=== PATIENT | male | born 1950 | race Caucasian/White ===

== ENCOUNTER 2017-04-21 09:02 | Emergency (ER) | payer MEDICARE ==
[2017-04-21] MEDS ORDERED: ASPIRIN 81 MG CHEWABLE TABLET PO ONE (09:06)
[2017-04-21] MEDS ORDERED: NITROGLYCERIN/D5W 50 MG/250 ML ML IV SCH (09:15)
--- NOTE | 2017-04-21 09:16 | Emergency Department Record ---
History of Present Illness - General Chief Complaint: Chest Pain Stated Complaint: LEFT SHOULDER PAIN/SHORTNESS BREATH Time Seen by Provider: 04/21/17 09:06 Source: Patient Mode of Arrival: Ambulatory Limitations: No limitations - History of Present Illness Initial Comments: 66 yo male presents to ED with a CC of left shoulder pain intermittently for the past 3-4 days. Patient reports that his symptoms became more intense this morning. Patient reports a history of similar symptoms related to his heart. Patient also reports taking Nitro tablets x 3 this morning that improved his pain symptoms. Patient reports history of CAD with stents x 10, [employer] [facility] [employer] is Dr. Hauser. Patient denies injury to the shoulder or fevers, chills, or recent illness. Patient is pain-free currently. MD Complaint: Chest pain Onset/Timin -: Days(s) Pain Location: Other Severity: Moderate Quality: Aching Consistency: Intermittent Improves With: Nitroglycerin Worsens With: Nothing - Related Data Home Medications Medication Instructions Recorded Confirmed Last Taken Atorvastatin Calcium [Atorvastatin 20 g PO DAILY 04/21/17 04/21/17 04/20/17 Calcium] Clopidogrel Bisulfate [Plavix] 75 mg PO DAILY 04/21/17 04/21/17 04/20/17 Hydrochlorothiazide 50 mg PO DAILY 04/21/17 04/21/17 04/20/17 Lisinopril [Lisinopril] 2.5 mg PO DAILY 04/21/17 04/21/17 04/20/17 Metformin HCl 500 mg PO BID 04/21/17 04/21/17 04/20/17 Zolpidem Tartrate [Zolpidem 10 mg PO DAILY 04/21/17 04/21/17 04/20/17 Tartrate] Allergies Allergy/AdvReac Type Severity Reaction Status Date / Time ceftriaxone [From Rocephin] Allergy PT UNSURE Verified 04/21/17 09:34 OF REACTION fentanyl [From Duragesic] Allergy PT UNSURE Verified 04/21/17 09:34 OF REACTION levofloxacin [From Levaquin] Allergy PT UNSURE Verified 04/21/17 09:34 OF REACTION Review of Systems Constitutional: Denies: Chills, Fever, Malaise, Night sweats Eyes: Denies: Eye discharge, Eye pain ENT: Denies: Congestion, Ear pain, Epistaxis Respiratory: Denies: Cough, Dyspnea Cardiovascular: Reports: Other (Left shoulder pain). Denies: Dyspnea on exertion, Palpitations Endocrine: Denies: Fatigue, Heat or cold intolerance Gastrointestinal: Denies: Abdominal pain, Nausea, Vomiting Genitourinary: Denies: Incontinence, Retention Musculoskeletal: Denies: Arthralgia, Back pain, Gout, Joint swelling Skin: Denies: Bruising, Change in color Neurological: Denies: Abnormal gait, Confusion, Headache Psychiatric: Denies: Anxiety Hematological/Lymphatic: Denies: Anemia, Blood Clots Physical Exam - General General Appearance: Alert, Oriented x3, Cooperative, Moderate distress, Other ( Patient appears moderately uncomfortable on examination, ashen color) Limitations: No limitations - Head Head exam: Atraumatic, Normocephalic, Normal inspection Head exam detail: negative: Abrasion, Contusion, Chaudhari's sign, General tenderness, Hematoma, Laceration - Eye Eye exam: Normal appearance. negative: Conjunctival injection, Periorbital swelling, Periorbital tenderness, Scleral icterus - ENT Ear exam: negative: Auricular hematoma, Auricular trauma Nasal Exam: negative: Active bleeding, Discharge, Dried blood Mouth exam: negative: Drooling, Laceration, Tongue elevation - Neck Neck exam: Normal inspection. negative: Meningismus, Tenderness - Respiratory Respiratory exam: Normal lung sounds bilaterally. negative: Respiratory distress, Rhonchi, Stridor, Wheezes - Cardiovascular Cardiovascular Exam: Regular rate, Normal rhythm, Normal heart sounds - GI/Abdominal GI/Abdominal exam: Soft. negative: Rebound, Rigid, Tenderness - Rectal Rectal exam: Deferred - exam: Deferred - Extremities Extremities exam: Normal inspection. negative: Calf tenderness, Tenderness - Back Back exam: Denies: CVA tenderness (R), CVA tenderness (L) - Neurological Neurological exam: Alert, Normal gait, Oriented X3 - Psychiatric Psychiatric exam: Normal affect, Normal mood - Skin Skin exam: Other (ashen appearance). negative: Abrasion Type of lesion: negative: abrasion Course - Reevaluation(s) Reevaluation #1: 04/21/17 09:16 EKG: NSR 87 LAD, Normal intervals No acute ST-T wave changes Unchanged from 05/07/2010 Reevaluation #2: 04/21/17 09:20 While discussing the patient's EKG results, reports that pain is beginning to return-Nitro drip has been ordered. Will plan of obtaining the patient's blood test results with a plan for transfer to [facility] for cardiology evaluation. Reevaluation #3: 04/21/17 10:16 Labs reviewed and are grossly unremarkable for an acute process. Patient is currently pain-free on Nitro 30 mcg/min, will initiate transfer for cardiology consultation. Reevaluation #4: 04/21/17 10:24 Case was discussed with Dr. Mayes, will accept transfer for cardiac evaluation. Medical Decision Making - Lab Data Result diagrams: 04/21/17 09:12 04/21/17 09:12 Disposition Disposition: Transfer Clinical Impression: Unstable angina Disposition: Acute Care Hospital Transfer Transfer To: [facility] Reason For Transfer: Unstable Angina Accepting Physician: Sugey Time Discussed w/Accepting Physician: 10:18 Condition: (2) Stable Forms: Patient Portal Access Time of Disposition: 10:18
[2017-04-21 09:44] LABS: BASO % 0.4 % (0-6); EOS % 4.7 % (0-6); GRAN % 69.7 % (47-80); HEMATOCRIT 40.3 % (42.0-52.0); HEMOGLOBIN 13.3 gm/dl (14.0-18.0); LYMPH % 20.3 % (16-45); MEAN CELL VOLUME 85.4 fl (81-97); MEAN CORPUSCULAR HEMOGLOBIN 28.1 pg (27-33); MEAN PLATELET VOLUME 11.2 fl (7.4-10.4); MONO % 4.9 % (0-9); PLATELET COUNT 207 K/uL (130-400); RED BLOOD COUNT 4.72 M/uL (4.40-5.70); RED CELL DISTRIBUTION WIDTH 14.3 % (11.5-14.5); WHITE BLOOD COUNT W/O DIFF 7.7 K/uL (4.2-12.2)
[2017-04-21 09:59] LABS: ALB/GLOB RATIO 1.3 (1.1-1.8); ALBUMIN 4.2 gm/dL (3.5-5.0); ALKALINE PHOSPHATASE 124 U/L (38-126); ALT/SGPT 15 U/L (21-72); ANION GAP 10.9 (7-16); AST/SGOT 14 U/L (17-59); BLOOD UREA NITROGEN 22 mg/dL (9-20); CARBON DIOXIDE 25.1 mmol/L (22-30); CREATINE PHOSPHOKINASE 39 U/L (55-170); EST GLOMERULAR FILTRATION RATE > 60 ml/min; GLUCOSE,RANDOM 244 mg/dL (70-110); TOTAL PROTEIN 7.4 gm/dL (6.3-8.2)
[2017-04-21 10:10] LABS: CKMB 0.4 ug/L (0-6)
[2017-04-21 10:14] LABS: TROPONIN I < 0.012 ng/mL (0.00-0.034)
[2017-04-21] MEDS ORDERED: 0.9 % SODIUM CHLORIDE 100ML BAG IV SCH (10:30)
[2017-04-21] MEDS ORDERED: MORPHINE SULFATE 5 MG/ML PFS IVP ONE (11:15)
--- NOTE | 2017-04-22 11:37 | RADIOLOGY REPORT ---
EXAM: CHEST AP or PA ONLY HISTORY: ACUTE SHORTNESS OF BREATH. TECHNIQUE: AP chest. COMPARISON: Chest x-ray, 10/06/2004. FINDINGS: Compromised study due to portable technique and lordotic positioning. Lungs are grossly clear. Cardiac silhouette, diaphragm, and osseous structures are unremarkable for age. IMPRESSION: ALLOWING FOR THE SUBOPTIMAL POSITIONING, NO ACUTE PROCESS. JOB NUMBER: [id number] MTDD
== END 2017-04-21 13:59 | disposition short-term general hospital (02) ==
LOC: ER 09:02
DX: I20.0 Unstable angina (principal); M25.512 Pain in left shoulder; R06.02 Shortness of breath; I25.10 Atherosclerotic heart disease of native coronary artery without angina pectoris; E11.9 Type 2 diabetes mellitus without complications; Z79.84 Long term (current) use of oral hypoglycemic drugs; Z95.5 Presence of coronary angioplasty implant and graft; F17.210 Nicotine dependence, cigarettes, uncomplicated
CPT/HCPCS: 99285; 96365; 96366; 96375; 99284; 82550; 85025; 82553; 84484; 80053; 71010; 93005; 93010; J2270

== ENCOUNTER 2019-10-02 13:28 | Emergency (ER) | payer MEDICARE ==
--- NOTE | 2019-10-02 14:18 | Emergency Department Record ---
History of Present Illness - General Chief Complaint: Back Pain/Injury Stated Complaint: BACK PAIN Time Seen by Provider: 10/02/19 14:05 Source: Patient Mode of Arrival: Ambulatory Limitations: No limitations - History of Present Illness Initial Comments: The patient is here due to being sent here from his PCP's office due to worsening back pain for a month. He states he has been having pain over the R SI area for a month which has been getting progressively worse. He also has had trouble urinating for some time and that is getting worse also. The patient does have a hx of prostate CA and did have his prostate removed in the past. He does see Dr. Poole and it seems his PSA has been rising over the last 2-3 months. The patient states the pain does radiate to the R buttock at times but not down the leg and there is no leg numbness, weakness, or incontinence. There has been no hx of nausea, vomiting, diarrhea or fever. The patient did have a NM scan in Jun and that did show some uptake in the R SI area. MD Complaint: Back pain Onset/Timin -: Month(s) Similar Symptoms Previously: No Place: Home Radiation: Buttocks, Right leg Severity: Moderate Severity scale (1-10): 6 Quality: Sharp Consistency: Constant Improves With: None Worsens With: None Context: Unknown Associated Symptoms: Denies other symptoms - Related Data Home Medications Medication Instructions Recorded Confirmed Last Taken Metoprolol Tartrate [Lopressor] 25 mg PO Q12H 10/02/19 10/02/19 10/02/19 Previous Rx's Medication Instructions Recorded Hydrocodone/Acetaminophen [Merom 1 each PO QID #12 tablet 10/02/19 5-325 Tablet] Allergies Allergy/AdvReac Type Severity Reaction Status Date / Time ceftriaxone [From Rocephin] Allergy PT UNSURE Verified 10/02/19 13:43 OF REACTION fentanyl [From Duragesic] Allergy PT UNSURE Verified 10/02/19 13:43 OF REACTION levofloxacin [From Levaquin] Allergy PT UNSURE Verified 10/02/19 13:43 OF REACTION Travel Screening - Travel/Exposure Within Last 30 Days Have you traveled within the last 30 days?: No - Travel/Exposure Within Last Year Have you traveled outside the [place] in the last year?: No - Additonal Travel Details Have you been exposed to anyone with a communicable illness?: No - Travel Symptoms Symptom Screening: None Review of Systems Constitutional: Denies: Chills, Fever Eyes: Denies: Eye discharge ENT: Denies: Congestion Respiratory: Denies: Cough, Dyspnea Cardiovascular: Denies: Arrhythmia Endocrine: Reports: Fatigue Gastrointestinal: Denies: Nausea Genitourinary: Reports: Dysuria Musculoskeletal: Denies: Arthralgia Past Medical History - SOCIAL HISTORY Smoking Status: Current every day smoker Alcohol Use: None Drug Use: None - RESPIRATORY Hx Respiratory Disorders: No - CARDIOVASCULAR Hx Cardio Disorders: Yes Hx Cardiac Cath: Yes Hx Chest Pain: Yes Comment:: 10 stents - NEURO Hx Neuro Disorders: No - GI Hx GI Disorders: No - Hx Genitourinary Disorders: Yes Hx Prostate Problems: Yes - ENDOCRINE Hx Endocrine Disorders: Yes Hx Diabetes: Yes - MUSCULOSKELETAL Hx Musculoskeletal Disorders: No - PSYCH Hx Psych Problems: Yes Comment:: [facility] - HEMATOLOGY/ONCOLOGY Hx Hematology/Oncology Disorders: Yes Comment:: prostate Family Medical History Any Significant Family History?: Yes Hx Heart Disease: Father, Grandparents Physical Exam - General General Appearance: Alert, Oriented x3, Cooperative, No acute distress - Head Head exam: Atraumatic, Normocephalic, Normal inspection - Eye Eye exam: Normal appearance, PERRL - ENT Throat exam: Normal inspection. negative: Tonsillar erythema, Tonsillar exudate - Neck Neck exam: Normal inspection, Full ROM. negative: Tenderness - Respiratory Respiratory exam: Normal lung sounds bilaterally. negative: Respiratory distress - Cardiovascular Cardiovascular Exam: Regular rate, Normal rhythm, Normal heart sounds - GI/Abdominal GI/Abdominal exam: Soft, Normal bowel sounds. negative: Tenderness - Extremities Extremities exam: Normal inspection, Full ROM, Normal capillary refill. negative: Tenderness - Back Back exam: Reports: Normal inspection, Other (There is R SI/pelvic bone tenderness.). Denies: Vertebral tenderness - Neurological Neurological exam: Alert, Normal gait, Oriented X3, Reflexes normal, Other (Neg SLR bilaterally.). negative: Abnormal gait, Altered, Motor sensory deficit Course Vital Signs 10/02/19 13:47 Temperature 97.5 F L Pulse Rate 92 H Respiratory 20 Rate Blood Pressure 150/84 Pulse Ox 98 - Reevaluation(s) Reevaluation #1: The patient is doing very well at this time. He is urinating normally and is up walking with no weakness. The patient did receive a Merom pill when he was at his PCP's office this afternoon and his pain is now much better. I did discuss the plan to place him on the Merom and have him see Dr. Benjamin SEARS. I also did discuss the case with Dr. Alexander and he does agree with the plan. 10/02/19 15:30 Medical Decision Making - Data Complexity MDM Data: Labs Ordered and/or Reviewed, X-Ray Ordered and/or Reviewed - Lab Data Result diagrams: 10/02/19 14:23 10/02/19 14:23 - Radiology Data Radiology results: Report reviewed (Lumbar xrays: Neg for any acute abnormality.) Disposition Disposition: Discharge Clinical Impression: Back pain Qualifiers: Back pain location: back pain in unspecified location Chronicity: chronic Back pain laterality: right Qualified Code(s): M54.9 - Dorsalgia, unspecified Disposition: Home, Self-Care Condition: (2) Stable Instructions: Chronic Back Pain (ED) Additional Instructions: Please take the Merom for pain and please see Dr. Alexander in the office later this week to discuss options due to your hx of prostate CA. Return to the ER for any worsening symptoms. Prescriptions: Hydrocodone/Acetaminophen [Merom 5-325 Tablet] 1 each PO QID #12 tablet Forms: Patient Portal Access Time of Disposition: 15:36 Quality - Quality Measures Quality Measures: N/A - Blood Pressure Screening View Details: Yes Does Patient Have Any of the Following: Active Dx of HTN Blood Pressure Classification: Pre-Hypertensive BP Reading Systolic Measurement: 150 Diastolic Measurement: 84 Screening for High Blood Pressure: Patient Exclusion, Hx of HTN [G9744]
[2019-10-02 14:32] LABS: HEMATOCRIT 41.3 % (42.0-52.0); HEMOGLOBIN 14.5 gm/dl (14.0-18.0); MEAN CELL VOLUME 85.2 fl (81-97); MEAN CORPUSCULAR HEMOGLOBIN 29.9 pg (27-33); MEAN CORPUSCULAR HGB CONC 35.1 g/dl (32-36); MEAN PLATELET VOLUME 9.9 fl (7.4-10.4); PLATELET COUNT 192 K/uL (130-400); RED BLOOD COUNT 4.85 M/uL (4.40-5.70); RED CELL DISTRIBUTION WIDTH 13.9 % (11.5-14.5); WHITE BLOOD COUNT W/O DIFF 9.8 K/uL (4.2-12.2)
[2019-10-02 14:50] LABS: BLOOD UREA NITROGEN 18 mg/dL (8-23); EST GLOMERULAR FILTRATION RATE > 60 mL/min
[2019-10-02 14:51] LABS: TOTAL PROTEIN 7.3 g/dL (6.6-8.7)
[2019-10-02 14:53] LABS: GLUCOSE,RANDOM 283 mg/dL (74-109)
[2019-10-02 14:55] LABS: ALBUMIN 4.3 g/dL (4.0-5.0); ALKALINE PHOSPHATASE 127 U/L (40-129); ALT/SGPT 13 U/L (<41); AST/SGOT 14 U/L (10.0-50.0)
[2019-10-02 14:59] LABS: BILIRUBIN,DIRECT < 0.2 mg/dL (0-0.3)
[2019-10-02 15:16] LABS: URINE APPEARANCE CLEAR; URINE BILIRUBIN NEGATIVE (NEGATIVE); URINE BLOOD NEGATIVE (NEGATIVE); URINE COLOR YELLOW; URINE KETONE NEGATIVE (NEGATIVE); URINE LEUKOCYTE ESTERASE NEGATIVE (NEGATIVE); URINE NITRITE NEGATIVE (NEGATIVE); URINE PROTEIN TRACE (NEGATIVE); URINE UROBILINOGEN 0.2 E.U./dL (0.20 - 1.00)
--- NOTE | 2019-10-02 15:16 | RADIOLOGY REPORT ---
EXAMINATION: Lumbar Spine Two or Three Views EXAM DATE: 10/02/2019 2:51 PM TECHNIQUE: AP and lateral views INDICATION: pain and hx prostate CA. COMPARISON: None ENCOUNTER: Initial FINDINGS: Normal vertebral body heights. Levoscoliosis. Diffuse interspace narrowing with mild anterior lateral spurring. SI joints patent and symmetrical. Aortic calcification. IMPRESSION: No acute abnormality, levoscoliosis with spondylitic change. Follow-up MRI if symptoms persist Dictated by: Sumeet Villalobos MD on 10/02/2019 3:12 PM. .
== END 2019-10-02 15:45 | disposition home or self-care (01) ==
LOC: ER 13:28
DX: M46.1 Sacroiliitis, not elsewhere classified (principal); R39.198 Other difficulties with micturition; I10 Essential (primary) hypertension; E11.9 Type 2 diabetes mellitus without complications; Z85.46 Personal history of malignant neoplasm of prostate; F17.210 Nicotine dependence, cigarettes, uncomplicated
CPT/HCPCS: 72100; 80048; 80076; 81003; 85027; 99284

== ENCOUNTER 2019-12-22 10:16 | Emergency (ER) | payer MEDICARE ==
[2019-12-22] MEDS ORDERED: 0.9 % SODIUM CHLORIDE 1,000 ML BAG IV ONE ×2 (10:58→11:33)
--- NOTE | 2019-12-22 11:06 | Emergency Department Record ---
History of Present Illness - General Chief complaint: General Stated complaint: PROBLEMS AFTER 2ND CHEMO Time Seen by Provider: 12/22/19 10:50 Source: Patient, Family Mode of Arrival: Wheelchair Limitations: No limitations - History of Present Illness Initial comments: The patient is here due to generalized weakness for 2 days ever since he got Chemo. The patient did receive his 2nd dose of Chemo from the [facility] 2 days ago for prostate CA. He has been having significant diarrhea for 4-5 days ever since he stopped his narcotic pain medicines. The patient denies any YADAV, fever, chills, CP, SOB, or AP. MD Complaint: Generalized weakness, Lack of energy Onset/Timin -: Days(s) Location: Generalized - Related Data Home Medications Medication Instructions Recorded Confirmed Last Taken Aspirin [Aspirin EC] 81 mg PO DAILY 12/22/19 12/22/19 Unknown Dexamethasone 1 mg PO DAILY 12/22/19 12/22/19 Unknown Insulin Glargine,Hum.rec.anlog 32 unit SQ QHS 12/22/19 12/22/19 Unknown [Lantus] Mirtazapine 30 mg PO QHS PRN 12/22/19 12/22/19 Unknown Sertraline HCl [Zoloft] 100 mg PO DAILY 12/22/19 12/22/19 Unknown Previous Rx's Medication Instructions Recorded Ciprofloxacin HCl [Cipro] 500 mg PO Q12HR #14 tablet 12/22/19 Allergies Allergy/AdvReac Type Severity Reaction Status Date / Time ceftriaxone [From Rocephin] Allergy PT UNSURE Verified 10/02/19 13:43 OF REACTION fentanyl [From Duragesic] Allergy PT UNSURE Verified 10/02/19 13:43 OF REACTION levofloxacin [From Levaquin] Allergy PT UNSURE Verified 10/02/19 13:43 OF REACTION Travel/Exposure Screening - Travel/Exposure Within Last 30 Days Have you traveled within the last 30 days?: No - Additonal Travel/Exposure Details Have you been exposed to anyone with a communicable illness?: No Review of Systems Constitutional: Reports: Malaise. Denies: Chills, Fever Eyes: Denies: Eye discharge ENT: Denies: Congestion Respiratory: Denies: Cough, Dyspnea Cardiovascular: Denies: Chest pain Endocrine: Reports: Fatigue Gastrointestinal: Denies: Nausea Genitourinary: Denies: Dysuria Musculoskeletal: Denies: Arthralgia Skin: Denies: Bruising Past Medical History - SOCIAL HISTORY Smoking Status: Former smoker Alcohol Use: None Drug Use: None - RESPIRATORY Hx Respiratory Disorders: No - CARDIOVASCULAR Hx Cardio Disorders: Yes Hx Abnormal EKG: Yes Hx Cardiac Cath: Yes Hx Chest Pain: Yes Comment:: 12 stents - NEURO Hx Neuro Disorders: No - GI Hx GI Disorders: No - Hx Genitourinary Disorders: Yes Hx Prostate Problems: Yes - ENDOCRINE Hx Endocrine Disorders: Yes Hx Diabetes: Yes - MUSCULOSKELETAL Hx Musculoskeletal Disorders: No - PSYCH Hx Psych Problems: Yes Comment:: 50% PTSD per the [place] - HEMATOLOGY/ONCOLOGY Hx Hematology/Oncology Disorders: Yes Hx Chemotherapy: Yes Hx Radiation Therapy: Yes Hx Clotting Problems: Yes Comment:: prostate Family Medical History Any Significant Family History?: Yes Hx Heart Disease: Father, Grandparents Physical Exam - General General Appearance: Alert, Oriented x3, Cooperative, No acute distress - Head Head exam: Atraumatic, Normocephalic, Normal inspection - Eye Eye exam: Normal appearance, PERRL, EOMI - ENT Throat exam: Normal inspection. negative: Tonsillar erythema, Tonsillar exudate - Neck Neck exam: Normal inspection, Full ROM. negative: Tenderness - Respiratory Respiratory exam: Normal lung sounds bilaterally. negative: Respiratory distress - Cardiovascular Cardiovascular Exam: Regular rate, Normal rhythm, Normal heart sounds - GI/Abdominal GI/Abdominal exam: Soft, Normal bowel sounds. negative: Rebound, Rigid, Tenderness - Extremities Extremities exam: Normal inspection, Full ROM, Normal capillary refill. negative: Tenderness - Back Back exam: Reports: Normal inspection - Neurological Neurological exam: Alert, Normal gait. negative: Abnormal gait, Motor sensory deficit - Skin Skin exam: negative: Rash Course Vital Signs 12/22/19 12/22/19 10:37 10:56 Temperature 97.5 F L Pulse Rate 109 H Respiratory 20 Rate Blood Pressure 121/82 Pulse Ox 97 - Reevaluation(s) Reevaluation #1: The patient is doing very well at this time. He denies any pain, chills, or a llergic rxn symptoms. 12/22/19 12:42 Reevaluation #2: The patient is doing a lot better at this time. He is up walking with no weakness or lightheadedness and feels "great". The patient feels very comfortable going home and clearly has had no allergic rxn symptoms at this time. 12/22/19 13:15 Reevaluation #3: The patient has had no diarrhea while here in the ER and denies any urge to have a stool. He does feel that he needs to urinate but is not able to which has been a chronic problem for him. He does straight cath at home so we will do a straight cath here due to the bladder scan reading 350 mls of urine in the bladder. The patient also will be able to do that at home and has the necessary equipment. I did discuss the case with Dr. Batista and he does feel the patient is stable for discharge due to the blood pressure being normal, no fever and the WBC, CRP, and Procalcitonin being normal. We will continue the patient on Cipro and he is to return for any worsening symptoms. 12/22/19 13:40 Reevaluation #4: I again asked the patient for a stool specimen for a Cdiff order that his Oncologist wanted by he is not able to provide us one. He has not had diarrhea for about 5 hours at this point. 12/22/19 14:11 Medical Decision Making - Data Complexity MDM Data: Labs Ordered and/or Reviewed, EKG Ordered and/or Reviewed - Lab Data Result diagrams: 12/22/19 10:55 12/22/19 10:55 - EKG Data -: EKG Interpreted by Me EKG: No Acute Changes, Normal EKG Disposition Disposition: Discharge Clinical Impression: UTI (urinary tract infection) Qualifiers: Urinary tract infection type: acute cystitis Hematuria presence: with hematuria Qualified Code(s): N30.01 - Acute cystitis with hematuria Disposition: Home, Self-Care Condition: (2) Stable Instructions: Urinary Tract Infection in Men (ED) Additional Instructions: Please drink plenty of fluids and continue the Cipro at home. Please return or see your Oncologist for any return of the weakness, or any fever, vomiting, or worsening diarrhea. Prescriptions: Ciprofloxacin HCl [Cipro] 500 mg PO Q12HR #14 tablet Forms: Patient Portal Access Time of Disposition: 13:58 Quality - Quality Measures Quality Measures: N/A - Blood Pressure Screening View Details: Yes Does Patient Have Any of the Following: No Blood Pressure Classification: Pre-Hypertensive BP Reading Systolic Measurement: 121 Diastolic Measurement: 82 Screening for High Blood Pressure: < Pre-Hypertensive BP, F/U Documented > [G8950] Pre-Hypertensive Follow-up Interventions: Referral to alternative/primary care provider.
[2019-12-22 11:16] LABS: ABSOLUTE NEUTROPHIL COUNT 10.31; HEMATOCRIT 42.7 % (42.0-52.0); HEMOGLOBIN 14.6 gm/dl (14.0-18.0); MEAN CELL VOLUME 85.6 fl (81-97); MEAN CORPUSCULAR HEMOGLOBIN 29.3 pg (27-33); MEAN CORPUSCULAR HGB CONC 34.2 g/dl (32-36); MEAN PLATELET VOLUME 10.7 fl (7.4-10.4); PLATELET COUNT 184 K/uL (130-400); RED BLOOD COUNT 4.99 M/uL (4.40-5.70); RED CELL DISTRIBUTION WIDTH 15.3 % (11.5-14.5); WHITE BLOOD COUNT W/O DIFF 11.4 K/uL (4.2-12.2)
[2019-12-22 11:17] LABS: PLATELET ESTIMATE NORMAL (NORMAL)
[2019-12-22 11:18] LABS: BLOOD UREA NITROGEN 29 mg/dL (8-23); CREATININE 1.2 mg/dL (0.7-1.2); EST GLOMERULAR FILTRATION RATE > 60 mL/min
[2019-12-22 11:19] LABS: TOTAL PROTEIN 6.7 g/dL (6.6-8.7)
[2019-12-22 11:21] LABS: GLUCOSE,RANDOM 329 mg/dL (74-109)
[2019-12-22 11:23] LABS: ALT/SGPT 22 U/L (<41)
[2019-12-22 11:24] LABS: ALKALINE PHOSPHATASE 111 U/L (40-129); AST/SGOT 19 U/L (10.0-50.0); BILIRUBIN,DIRECT < 0.2 mg/dL (0-0.3)
[2019-12-22 11:39] LABS: URINE APPEARANCE CLOUDY; URINE BILIRUBIN NEGATIVE (NEGATIVE); URINE BLOOD SMALL (NEGATIVE); URINE COLOR YELLOW; URINE KETONE NEGATIVE (NEGATIVE); URINE LEUKOCYTE ESTERASE SMALL (NEGATIVE); URINE NITRITE POSITIVE (NEGATIVE); URINE UROBILINOGEN 0.2 E.U./dL (0.20 - 1.00)
[2019-12-22 11:43] LABS: C-REACTIVE PROTEIN 0.34 mg/dL (<0.5)
[2019-12-22 11:45] LABS: URINE BACTERIA 2+; URINE EPITHELIAL CELLS NONE SEEN (FEW); URINE RBC 16 - 25 (NONE SEEN); URINE WBC >50 (0-2/hpf)
[2019-12-22] MEDS ORDERED: CIPROFLOXACIN LACTATE/D5W 400 MG/200 ML BAG IVPB ONE (11:56)
== END 2019-12-22 14:19 | disposition home or self-care (01) ==
LOC: ER 10:16
DX: N30.01 Acute cystitis with hematuria (principal); R53.1 Weakness; C61 Malignant neoplasm of prostate; R19.7 Diarrhea, unspecified; Z87.891 Personal history of nicotine dependence
CPT/HCPCS: 80048; 80076; 81001; 84145; 85027; 86140; 96361; 96365; 99284; J7030